=== PATIENT | female | born 1990 | race Caucasian/White ===

== ENCOUNTER 2018-09-26 02:47 | Emergency (ER) | payer BC ==
[2018-09-26 03:35] LABS: #Basophils 0.1 thou/uL (0.0-0.2); #Eosinphils 0.2 thou/uL (0.0-0.7); #Lymphocytes 2.5 thou/uL (1.20-3.40); #Monocytes 0.6 thou/uL (0.11-0.59); #Neutrophils 4.3 thou/uL (1.40-6.50); %Basophils 1.1 % (0.0-1.0); %Eosinophils 2.2 % (0.0-10.0); %Lymphocytes 32.6 % (21.0-51.0); %Monocytes 7.9 % (0.0-10.0); %Neutrophils 56.2 % (42.0-75.0); Hemoglobin 14.5 g/dL (12.0-16.0); Mean Corpuscular HGB CONC 35.5 g/dL (32.0-36.0); Mean Corpuscular Hemoglobin 33.5 pg (27.0-31.0); Mean Corpuscular Volume 94.3 fL (78.0-98.0); Platelet Count 193 thou/uL (130-400); Red Blood Cell (RBC) Count 4.33 mill/uL (4.20-5.40); White Blood Cell (WBC) Count 7.7 thou/uL (4.8-10.8)
[2018-09-26 03:35] LABS: Bilirubin Negative (Negative); Blood, Urine Large (Negative); Clarity CLEAR (Clear); Glucose, Urine (Dipstick) Negative (Negative); Leukocyte Small (Negative); Nitrite Negative (Negative); Pregnancy Test - Urine (BHCG) Negative (Negative); Protein, Urine (Dipstick) Trace mg/dL (Neg-Trace); pH, Urine 5.5 (5.0-9.0)
[2018-09-26 03:36] LABS: Pregu Control Background? CLEAR/WHITE (CLR/WHITE); Pregu Control Bar Appear? YES (CONTROL BAR)
[2018-09-26 03:38] LABS: Bacteria/HPF None Seen HPF (None Seen); Hyaline Casts/LPF 0-3 HYALINE CAST LPF (0-3 Hyaline); Pathc Cast-AUWi Flag 0.13 (0-2.49); RBC/HPF GREATER THAN 50-TNTC HPF (0-3); Squamous Epithelial 0-3 HPF (0-3)
[2018-09-26 03:58] LABS: ALT (SGPT) 22 U/L (8-55); AST (SGOT) 13 U/L (5-34); Albumin 4.3 g/dL (3.5-5.0); Alkaline Phosphatase 106 U/L (40-150); Anion Gap 12 mmol/L (10-20); BUN (Urea Nitrogen) 14 mg/dL (7.0-18.7); Bilirubin, Total 1.1 mg/dL (0.2-1.2); Calc. Creatinine Clearance 0 mL/min (70-130); Calcium 9.6 mg/dL (7.8-10.44); Carbon Dioxide 20 mmol/L (22-29); Chloride 111 mmol/L (98-107); Estimated GFR-MDRD 89; Globulin 2.5 g/dL (2.4-3.5); Glucose 113 mg/dL (70-105); Potassium 3.2 mmol/L (3.5-5.1); Protein, Total 6.8 g/dL (6.0-8.3); Sodium 140 mmol/L (136-145)
[2018-09-26] MEDS ORDERED: Ketorolac Tromethamine 30 MG/ML VIAL ONE (04:05)
[2018-09-26] MEDS ORDERED: Ondansetron PF 4 MG/2 ML Vial ONE (04:19)
--- NOTE | 2018-09-26 08:12 | CT ---
CT OF THE ABDOMEN AND PELVIS WITHOUT IV CONTRAST: INDICATION: Left-sided flank pain. FINDINGS: There is mild to moderate left-sided hydronephrosis and hydroureter. There is a 4.1 (width) x 7 mm ( length) calculus within the distal left ureter just proximal to the left UVJ. There are multiple sma ll phleboliths within the lower pelvis. There is a normal retrocecal appendix. There is a 2 mm supe rior pole right renal calculus. There is a 2.5 mm inferior pole right renal calculus. Unopacified liver, pancreas, and adrenal glands are within normal limits. The spleen is within luis l limits. There is a mild amount of retained stool within the colon. No acute osseous abnormality i s evident. IMPRESSION: 1. A 4 mm x 7 mm distal left ureteral calculus with mild to moderate left hydronephrosis. 2. Right nephrolithiasis. POS: BH
== END 2018-09-26 06:00 | disposition home or self-care (01) ==
LOC: ERS 02:47
DX: N13.2 Hydronephrosis with renal and ureteral calculous obstruction (principal)
CPT/HCPCS: 36415; 74176; 80053; 81003; 81015; 81025; 85025; 87077; 87086; 96361; 96374; 96375; J1885; J2405

== ENCOUNTER 2018-09-27 09:56 | Observation (INO) | payer BC ==
[2018-09-27] MEDS ORDERED: Morphine 4 MG/ML VIAL ONE ×3 (11:42→18:32)
[2018-09-27] MEDS ORDERED: Ondansetron PF 4 MG/2 ML Vial ONE (11:43)
[2018-09-27 12:36] LABS: #Lymphocytes 1.4 thou/uL (1.20-3.40); #Monocytes 0.6 thou/uL (0.11-0.59); #Neutrophils 6.4 thou/uL (1.40-6.50); %Basophils 0.4 % (0.0-1.0); %Eosinophils 0.3 % (0.0-10.0); %Lymphocytes 16.9 % (21.0-51.0); %Monocytes 6.9 % (0.0-10.0); %Neutrophils 75.5 % (42.0-75.0); Hemoglobin 13.8 g/dL (12.0-16.0); Mean Corpuscular HGB CONC 33.9 g/dL (32.0-36.0); Mean Corpuscular Hemoglobin 32.2 pg (27.0-31.0); Mean Corpuscular Volume 95.1 fL (78.0-98.0); Mean Platelet Volume 7.2 fL (7.4-10.4); Platelet Count 177 thou/uL (130-400); Red Blood Cell (RBC) Count 4.27 mill/uL (4.20-5.40); White Blood Cell (WBC) Count 8.4 thou/uL (4.8-10.8)
[2018-09-27 12:53] LABS: ALT (SGPT) 23 U/L (8-55); AST (SGOT) 17 U/L (5-34); Albumin 4.3 g/dL (3.5-5.0); Alkaline Phosphatase 107 U/L (40-150); Anion Gap 14 mmol/L (10-20); BUN (Urea Nitrogen) 16 mg/dL (7.0-18.7); Bilirubin, Total 1.6 mg/dL (0.2-1.2); Calc. Creatinine Clearance 0 mL/min (70-130); Calcium 9.5 mg/dL (7.8-10.44); Carbon Dioxide 19 mmol/L (22-29); Chloride 113 mmol/L (98-107); Estimated GFR-MDRD 58; Globulin 2.5 g/dL (2.4-3.5); Glucose 81 mg/dL (70-105); Protein, Total 6.8 g/dL (6.0-8.3); Sodium 142 mmol/L (136-145)
[2018-09-27 12:57] LABS: BHCG - Serum Negative (NEGATIVE); Pregs Control Background? CLEAR/WHITE (CLR/WHITE); Pregs Control Bar Appear? YES (CONTROL BAR)
[2018-09-27 13:49] LABS: Bilirubin Negative (Negative); Blood, Urine Moderate (Negative); Clarity CLEAR (Clear); Glucose, Urine (Dipstick) Negative (Negative); Leukocyte Negative (Negative); Nitrite Negative (Negative); Protein, Urine (Dipstick) Negative (Neg-Trace); Specific Gravity, Urine 1.014 (1.002-1.036); Urobilinogen 0.2 mg/dL (0.2-1.0)
[2018-09-27 13:57] LABS: Bacteria/HPF None Seen HPF (None Seen); Hyaline Casts/LPF 0-3 HYALINE CAST LPF (0-3 Hyaline); RBC/HPF 0-3 HPF (0-3); Squamous Epithelial None Seen HPF (0-3); WBC/HPF 0-3 HPF (0-3)
[2018-09-27] MEDS ORDERED: cefTRIAXone\\ROCEPHIN 1 GM VIAL ONE (16:06)
[2018-09-27] MEDS ORDERED: Tamsulosin HCl 0.4 MG CAP PO SCH (16:30)
[2018-09-27] MEDS ORDERED: Metoclopramide HCl 10 MG/2 ML VIAL IVP PRN (17:02)
[2018-09-27] MEDS ORDERED: Morphine 4 MG/ML VIAL SLOW IVP PRN (17:02)
[2018-09-27] MEDS ORDERED: diphenhydrAMINE 50 MG in Sodium Chloride 0.9% 50 ML IVPB PRN (17:02)
[2018-09-27] MEDS ORDERED: Ondansetron PF 4 MG/2 ML Vial IVP PRN (17:02)
[2018-09-27] MEDS ORDERED: traMADol HCl 50 MG TAB ONE (17:32)
[2018-09-27] MEDS ORDERED: Senokot S 8.6-50 MG TAB PO PRN (17:32)
[2018-09-27] MEDS ORDERED: Acetaminophen 325 MG TAB PO PRN (17:32)
[2018-09-27] MEDS: Lactated Ringer's 1,000 ML IV SCH (18:20)
[2018-09-27] MEDS: Famotidine 20 MG TAB PO SCH (21:28)
[2018-09-27 21:55] VITALS: BMI 29.9
--- NOTE | 2018-09-28 00:33 | CON ---
DATE OF CONSULTATION: 09/27/2018 REASON FOR CONSULTATION: Consultation was requested for obstructing ureteral stone and renal colic. HISTORY OF PRESENT ILLNESS: The patient is a 27-year-old female who was seen the day before in the ER and sent out with Toradol for a distal obstructing stone, but returned with further pain, nausea, but no emesis after failing outpatient treatment. She has not seen blood, nor had prior concerns for urinary tract infections, this is her 1st stone. She has no urinary leakage. Normally, she has frequency 3 to 4 hours and nocturia times 0 to 1. PAST MEDICAL HISTORY: Insignificant. PAST SURGICAL HISTORY: Cardiac procedure as an repairing what she terms a hole in the valve, but I suspect it was more for an atrial or some sort of septal defect. She has not had any further trouble related to her heart since then. PAST OB HISTORY: She has had a miscarriage and 2 C sections. Her last menstrual period was in February 2018. She is not concerned that she is as she is on control that minimizes her periods. MEDICATIONS: Include Toradol. ALLERGIES: NONE. REVIEW OF SYSTEMS: No hypertension. No high cholesterol. Normal bowels without any diarrhea or constipation. No chest pain. No shortness of breath. No cough. Pap was within normal limits as of July. She did reveal that she had blood by either dip or micro in July and was followed up in August and thought to be normal. SOCIAL HISTORY: No tobacco, alcohol, or drugs. FAMILY HISTORY: Mother and father alive and healthy, neither had stones. PHYSICAL EXAMINATION: VITAL SIGNS: T-max 99.6, heart rate 83, blood pressure 124/73, saturating 100% on room air. GENERAL: She is in no apparent distress and lying comfortably in the bed. She has no hyperemia, no diaphoresis. She has no JVD. She has no scleral icterus. HEART: Regular rate and rhythm. No murmurs, gallops, or rubs. LUNGS: Clear to auscultation bilaterally. A scar was noted on her left posterior thorax and near the axillary line. She had minimal to no left CVA tenderness, none on the right. ABDOMEN: Soft, nondistended, nontender. Reported tenderness in the left lower quadrant, but none elicited on palpation. Showed normoactive bowel sounds. EXTREMITIES: She had no lower extremity edema. VULVA: Deferred at this time. LABORATORY VALUES: Reveal a normal CBC, a creatinine which has risen from 0.78 yesterday to 1.13. Urinalysis from today revealed 0 to 3 0 to 2 rbc's, no bacteria, and no squamous cells. Urinalysis from yesterday revealed 7 to 10 wbc's, too numerous to count rbc's, no bacteria, and 0 to 3 squamous cells. DIAGNOSTIC STUDIES: CT scan on 09/26/2018 without contrast reviewed personally , it revealed a 7-mm long and 4-mm wide distal left ureteral stone that was noted on awning erector. There are a couple of flecks on the right that are barely visible. Otherwise, she had no other concerning stones. She did have hydronephrosis related to a left distal stone and her bladder appeared normal. Risks and benefits of intervention for stone reviewed in detail. We reviewed ureteroscopy and holmium laser lithotripsy, as well as stents. There was a small chance that I would not be able to remove the stone and that further procedures might be necessary thereafter. Risks and benefits were reviewed. All questions were answered. ASSESSMENT: We have a 27-year-old female with an obstructing left ureteral stone, with failed outpatient management who has been admitted for pain control and we can anticipate definitive stone therapy tomorrow. As long as she stays without any concerns for infection and her procedure goes well, and then the hope is that she could be discharged thereafter. Job ID: [id number] MTDD
--- NOTE | 2018-09-28 01:09 | HP ---
PRIMARY CARE PHYSICIAN: None. CHIEF COMPLAINT: Flank pain. HISTORY OF PRESENT ILLNESS: Ms. Olivares is a 27-year-old female, who has been to the emergency room twice in the last 2 days for left-sided kidney pain. Reports intermittent urinary retention, was diagnosed with a left ureteral stone. Radiology reported that it was a 4 mm x 7 mm. She reports given Toradol and Zofran in the emergency room on her first visit. Reports that her pain completely went away. She went home, slept most of the day, did take Toradol twice, and then was woken up from the pain again early this morning, and returned to the emergency room. Dr. Plaza was contacted on both visits. On the first one, she reports that since the stone was 4 mm and the pain had resolved, she was okay to go home and follow up with her in the office. Since the patient has returned to the emergency room with similar symptoms, she will be admitted for pain control and will go to the operating room tomorrow for possible stent placement. The patient will be admitted to the medical floor for further management. PAST MEDICAL HISTORY: None. PAST SURGICAL HISTORY: x2. PSYCHIATRIC HISTORY: None. SOCIAL HISTORY: Denies alcohol or drug use. Has no smoking history. ALLERGIES: NONE. MEDICATIONS: The patient has a Nexplanon. REVIEW OF SYSTEMS: The patient reports bilateral flank pain. Reports some nausea. Denies any vomiting, diarrhea. Does report some intermittent urinary retention. Reports left flank pain that radiates to the left side of her abdomen. All other systems are reviewed and negative unless mentioned above. PHYSICAL EXAMINATION: VITAL SIGNS: Blood pressure 128/74, pulse is 75, respirations are 12, temperature is 98.8, and O2 sats are 99% on room air. Pain is currently a 4/10. CONSTITUTIONAL: The patient appears nontoxic, is alert and oriented to person, place, and time. HEENT: Head is atraumatic and normocephalic. Eyes; eyelids are normal to inspection. Extraocular muscles are intact. NECK: Normal range of motion. Trachea is midline. RESPIRATORY: Chest, no findings of respiratory distress. Breath sounds are clear. CARDIOVASCULAR: Normal heart rate and rhythm. Heart sounds are normal. ABDOMEN: Nontender. Bowel sounds are heard. BACK: Normal inspection. No CVA tenderness. NEUROLOGIC: The patient is oriented to person, place, and time. Speech is normal. SKIN: Warm, dry, normal in color. PSYCH: The patient has a normal affect. PERTINENT LABORATORY DATA: UA is positive for ketones and blood. Serum test is negative. Sodium is 142, potassium 4.0, chloride is 113, carbon dioxide is 19, creatinine is 1.13, estimated GFR is 58, glucose is 81. Liver enzymes are unremarkable. White blood cell count is 8.4, hemoglobin is 13.8, hematocrit is 40.6, and platelet count is 177. ASSESSMENT AND PLAN: 1. 4 x 7 mm distal left ureteral calculi with moderate left hydronephrosis, IV hydration, pain medication. Dr. Plaza has been consulted and will take the patient to the OR tomorrow. The patient will be n.p.o. after midnight. 2. Gastrointestinal and deep vein thrombosis prophylaxis will be started. 3. Hospital course will depend on clinical findings. Job ID: [id number]
[2018-09-28] MEDS: Lactated Ringer's 1,000 ML IV SCH ×2 (05:23→14:46)
[2018-09-28 07:32] LABS: #Eosinphils 0.2 thou/uL (0.0-0.7); #Lymphocytes 1.7 thou/uL (1.20-3.40); #Monocytes 0.5 thou/uL (0.11-0.59); #Neutrophils 2.9 thou/uL (1.40-6.50); %Basophils 0.5 % (0.0-1.0); %Eosinophils 2.9 % (0.0-10.0); %Lymphocytes 32.4 % (21.0-51.0); %Monocytes 10.1 % (0.0-10.0); Hemoglobin 12.2 g/dL (12.0-16.0); Mean Corpuscular HGB CONC 34.6 g/dL (32.0-36.0); Mean Corpuscular Hemoglobin 32.8 pg (27.0-31.0); Mean Corpuscular Volume 94.8 fL (78.0-98.0); Mean Platelet Volume 6.7 fL (7.4-10.4); Platelet Count 151 thou/uL (130-400); White Blood Cell (WBC) Count 5.4 thou/uL (4.8-10.8)
[2018-09-28 07:45] LABS: Anion Gap 10 mmol/L (10-20); BUN (Urea Nitrogen) 10 mg/dL (7.0-18.7); Calc. Creatinine Clearance 143 mL/min (70-130); Calcium 8.6 mg/dL (7.8-10.44); Carbon Dioxide 23 mmol/L (22-29); Chloride 111 mmol/L (98-107); Estimated GFR-MDRD Greater than 90; Glucose 80 mg/dL (70-105); Potassium 3.8 mmol/L (3.5-5.1); Sodium 140 mmol/L (136-145)
[2018-09-28] MEDS: Famotidine 20 MG TAB PO SCH (09:00)
[2018-09-28] MEDS ORDERED: Tamsulosin HCl 0.4 MG CAP PO SCH (09:00)
[2018-09-28] MEDS ORDERED: Enoxaparin Sodium 40 MG/0.4 ML SYRINGE SC SCH (09:00)
[2018-09-28] MEDS ORDERED: CEFAZOLIN 2 GM in Premix Bag 1 BAG IVPB SCH (10:00)
[2018-09-28] MEDS ORDERED: Iothalamate Meglumine 60% 50 ML VIAL FS ONE (10:51)
[2018-09-28] MEDS ORDERED: Midazolam HCl 2 mg/2 ml Vial ONE (11:32)
[2018-09-28] MEDS ORDERED: Promethazine HCl 25 MG/ML VIAL ONE (11:33)
[2018-09-28] MEDS ORDERED: Fentanyl 100 MCG/2 ML VIAL ONE ×3 (11:59→13:44)
[2018-09-28] MEDS ORDERED: Promethazine HCl 25 MG/ML VIAL SLOW IVP PRN (13:05)
[2018-09-28] MEDS ORDERED: Promethazine HCl 25 MG/ML VIAL IM PRN (13:05)
[2018-09-28] MEDS ORDERED: HYDROmorphone 2 MG/ML VIAL SLOW IVP PRN (13:05)
[2018-09-28] MEDS ORDERED: PACU-Morphine 4MG/ML VIAL SLOW IVP PRN (13:05)
[2018-09-28] MEDS ORDERED: Ondansetron HCl/PF 4 MG/2 ML Vial IVP PRN (13:05)
[2018-09-28] MEDS ORDERED: ePHEDrine 50 MG/ML VIAL ONE (13:20)
[2018-09-28] MEDS ORDERED: PHENYLEPHRINE-NS 100 MCG/ML 10 ML SYRINGE ONE (13:20)
[2018-09-28] MEDS ORDERED: Dexamethasone 20 MG/5 ML VIAL ONE (13:20)
[2018-09-28] MEDS ORDERED: PROPOFOL 200 MG/20 ML VIAL ONE (13:20)
[2018-09-28] MEDS ORDERED: Ondansetron PF 4 MG/2 ML Vial ONE (13:20)
[2018-09-28] MEDS ORDERED: Lidocaine 1% PF 5 ML VIAL ONE (13:20)
[2018-09-28] MEDS ORDERED: traMADol HCl 50 MG TAB PO PRN ×2 (13:52)
[2018-09-28 15:44] VITALS: BP 116/56; TEMP 98.4
--- NOTE | 2018-09-28 20:48 | OP ---
DATE OF PROCEDURE: 09/28/2018 PREOPERATIVE DIAGNOSIS: Left ureteral stone. POSTOPERATIVE DIAGNOSIS: Left ureteral stone. PROCEDURES PERFORMED: Cystoscopy, left ureteroscopy, left holmium laser lithotripsy, stone basketing, stent placement 6 x 28 double-J as well as retrograde pyelogram. SPECIMEN: Urine from the left renal pelvis for culture. DRAIN REMAINING: A 6 x 28 double-J with a string. COMPLICATIONS: No complications. FINDINGS: Stone was easily fragmented and removed via basket and sent for specimen. INDICATIONS OF PROCEDURE: The patient is a 27-year-old female, who is admitted after returning with 24-hours of being seen in the ER with renal colic. On the left, she had a distal 7-mm long, 4-mm wide stone. She had no concerns for infection. She had no fever or dirty urine, just renal colic and pain, thus she was admitted for urgent therapy and fortunately we were able to arrange holmium lithotripsy to be present. DESCRIPTION OF PROCEDURE: The patient was brought to the room by Anesthesia and laid on table in supine position. After being given general anesthetic, the legs were placed in lithotomy position with the left leg lower than the right leg elevated, and she was prepped and draped in sterile fashion. Using a 21-Emirati cystoscope, the bladder was inspected and seen without lesions. The left ureteral orifice was appeared normal, and a wire was used to intubate it up beyond the stone easily, then the Pollack catheter followed this wire up to the renal pelvis. The wire was removed. Hydronephrotic drip was not noted, but I was able to get approximately 12 mL of very clear urine, almost like water, sent for specimen. At that point, the wire was replaced, the Bearden catheter was removed, and the ureteral orifice was dilated with a 12-Emirati balloon until a pressure of 12 mmHg. Then, it was removed, leaving the wire in place. The scope was broken apart, bladder drained and then removed fully with the wire coiled and remaining with safety, then the rigid ureteroscope was followed along the wire to the level of stone, where it was fragmented into 3 main pieces. All 3 were extracted and sent for specimen. Final path of the ureter revealed nothing further of concern. At this point, the cystoscope was back fed over the wire and a 6 x 28 double-J was placed over the wire with a good coil visualized in the renal pelvis via fluoroscopy and a good coil visualized in the bladder via cystoscopy. The scope was broken apart, bladder drained and removed carefully leaving the string intact, which was then taped to the patient's inner left thigh. The patient tolerated the procedure well, was then awakened and transferred to PACU in stable condition. Job ID: [id number]
--- NOTE | 2018-09-29 03:36 | DIS ---
DATE OF ADMISSION: 09/27/2018 DATE OF DISCHARGE: 09/28/2018 This is Nelly Brady PA-C dictating a report for Sandra Plaza MD. ALLERGIES: NO KNOWN DRUG ALLERGIES. CHIEF COMPLAINT: Left flank pain. FINAL DIAGNOSIS: Obstructing left ureteral stone status post extraction and ureteral stent placement with Dr. Plaza. PROCEDURES PERFORMED: As above. LABORATORY RESULTS: White blood cell count 5.4, hemoglobin 12.2, hematocrit 35.1, platelets 151. Sodium 140, potassium 3.8, chloride 111, carbon dioxide 23, anion gap 10, creatinine 0.77. GFR greater than 90, glucose 80. Liver function tests within normal limits. Urinalysis positive for urine ketones and moderate amount of blood. IMAGING RESULTS: Abdomen and pelvis CT without IV contrast performed on 09/26/2018, shows a mild to moderate left-sided hydronephrosis and hydroureter with a 4.1 x 7 mm calculus in the distal left ureter just proximal to the left UVJ. There is a 2 mm superior pole right renal calculus as well as 2.5 mm inferior pole right renal calculus. CONSULTATIONS: Dr. Plaza, Urology. HOSPITAL COURSE: The patient is a very pleasant 27-year-old female who originally presented to the ER 2 days ago with complaints of left-sided flank pain as well as nausea. At that time, she was given Toradol and Zofran with complete resolution of her symptoms. She was given Toradol as an outpatient and told to follow up with Dr. Plaza for further management, however, the patient returned back to the emergency room with worsening pain and so was admitted for pain control and scheduled for stone therapy and ureteral stent placement for the next day. The patient did undergo successful procedure today. She has had no further issues of pain. She has urinated without issue. She denies any nausea or vomiting. She is tolerating her diet at this time. No chest pain or shortness of breath. Per Dr. Plaza, she will be discharged today on a 3-day course of prophylactic antibiotic. PHYSICAL EXAMINATION: VITAL SIGNS: Blood pressure 116/56, O2 saturation 100% on room air, temperature 98.4, pulse is 96. GENERAL: This is a mildly obese female who appears stated age, in no acute distress, resting comfortably in bed. HEAD: Atraumatic, normocephalic. HEENT: Mucous membranes are moist. RESPIRATORY: Regular respiratory rate and pattern. Clear to auscultation bilaterally. CV: S1 and S2. Regular rate and rhythm. No appreciable murmurs, rubs, or gallops. GI: Soft, nontender. Positive bowel sounds. PERIPHERAL VASCULAR: No lower extremity peripheral edema. +2 DP pulses bilaterally. MUSCULOSKELETAL: No joint effusion or swelling. SKIN: Warm and dry. No rashes. NEUROLOGIC: Awake and alert. Cranial nerves 2 through 12 are intact. No focal deficits. CONDITION AT DISCHARGE: Stable. DISCHARGE MEDICATIONS: Nitrofurantoin 100 mg capsule one capsule p.o. b.i.d. x3 days. DISCHARGE DISPOSITION: Home. PLAN: The patient will follow up with Dr. Plaza in the office on , 2 days from now for stent removal. She will continue her antibiotic course as directed. Findings discussed with the patient and all questions answered. Discharge order placed by Dr. Plaza. Job ID: [id number]
== END 2018-09-28 17:15 | disposition home or self-care (01) ==
LOC: ERS 09:56 → ERHOLD 15:35 → 3SE 20:46
PROVIDERS: ADMIT Family Medicine; ATTEND Family Medicine
PROC: 0TF78ZZ Fragmentation in Left Ureter, Via Natural or Artificial Opening Endoscopic (ICD-10-PCS; principal; 2018-09-28)
PROC: 0T778DZ Dilation of Left Ureter with Intraluminal Device, Via Natural or Artificial Opening Endoscopic (ICD-10-PCS; 2018-09-28)
DX: N13.2 Hydronephrosis with renal and ureteral calculous obstruction (principal); Z79.2 Long term (current) use of antibiotics; Z79.3 Long term (current) use of hormonal contraceptives; Z98.890 Other specified postprocedural states
CPT/HCPCS: 36415; 76000; 80048; 80053; 81003; 81015; 82365; 84703; 85025; 87086; 88300; 96361; 96365; 96375; 96376; C1758; G0378; J0696; J1100; J2001; J2250; J2270; J2405; J2550; J2704; J3010; J3490; Q9961